=== PATIENT | male | born 2000 | race Two or more races ===

== ENCOUNTER 2022-02-24 11:11 | Emergency (ER) | payer OTHER ==
[~2022-02-24] VITALS: Ht 182.9 cm; Wt 71.2 kg
[2022-02-24 11:41] VITALS: BP 133/77
[2022-02-24 12:42] LABS: BASOPHILS % (AUTO) 0.2 % (0.0-2.0); EOSINOPHILS % (AUTO) 0.1 % (0.0-6.0); HEMATOCRIT 40 % (39-51); HEMOGLOBIN 13.3 g/dL (13.5-17.5); LYMPHOCYTES % (AUTO) 9.6 % (20.0-44.0); MEAN CORPUSCULAR HGB CONC 34 g/dl (31.0-36.0); MEAN CORPUSCULAR VOLUME 83 fL (80-96); MONOCYTES # (AUTO) 0.6 K/uL (0.1-1.30); MONOCYTES % (AUTO) 6.1 % (2.0-12.0); NEUTROPHILS # (AUTO) 8.8 K/uL (1.8-8.9); PLATELET COUNT (AUTO) 212 K/uL (150-450); RED BLOOD CELL COUNT(AUTO) 4.79 MIL/uL (4.5-6.0); WHITE BLOOD COUNT (AUTO) 10.4 K/uL (4.3-11.0)
[2022-02-24 12:57] LABS: CREATININE 0.8 mg/dL (0.6-1.3); POTASSIUM 3.7 mmol/L (3.5-5.1)
== END 2022-02-24 13:27 | disposition home or self-care (01) ==
LOC: ER 11:17
DX: F41.0 Panic disorder [episodic paroxysmal anxiety] (principal); Z59.00 Homelessness unspecified
CPT/HCPCS: 36415; 80048-TC; 85025-TC